=== PATIENT | female | born 1970 | race African-American/Black ===

== ENCOUNTER 2019-05-19 03:26 | Inpatient (IN) | payer MEDICAID ==
[~2019-05-19] VITALS: Ht 167.6 cm; Wt 91.2 kg
[~2019-05-19 03:26] MED LIST: Famotidine PO; VITMAIN B12 PO
[2019-05-19] MEDS ORDERED: ONDANSETRON HCL 4MG/2ML INJ IV STA (04:42)
[2019-05-19] MEDS ORDERED: FAMOTIDINE 20MG/2ML VIAL IV STA (04:42)
[2019-05-19] MEDS ORDERED: SODIUM CHLORIDE 0.9% 1,000 ML IV ONE (04:42)
[2019-05-19 06:01] LABS: BASOPHILS % 0.1 % (0.0-2.0); EOSINOPHILS % 0.7 % (0.0-5.0); LYMPHOCYTES % 20.4 % (20.0-50.0); MEAN CORPUSCULAR HEMOGLOBIN 24.1 pg (28.0-32.0); MONOCYTES % 2.2 % (2.0-8.0); NEUTROPHILS % 76.6 % (40.0-76.0); RED BLOOD CELL COUNT 2.24 mill/uL (4.2-5.4); RED CELL DISTRIBUTION WIDTH 49.6 % (11.6-14.6)
[2019-05-19 06:10] LABS: CHLORIDE 107 mEq/L (98-107)
[2019-05-19 06:22] LABS: HEMATOCRIT. 17.5 % (36.0-48.0); HEMOGLOBIN. 5.4 g/dL (12.0-16.0)
[2019-05-19 06:33] LABS: PLATELET ESTIMATE NORMAL
[2019-05-19 06:38] LABS: PLATELET 136 x1000/uL (130-400)
[2019-05-19 06:39] LABS: MEAN PLATELET VOLUME 9.1 fl (7.4-10.4)
[2019-05-19 13:18] LABS: CLARITY URINE CLOUDY (CLEAR); COLOR URINE ORANGE (YELLOW); KETONES URINE NEGATIVE (NEGATIVE); LEUKOCYTE ESTERASE URINE TRACE (NEGATIVE); NITRITE URINE NEGATIVE (NEGATIVE); OCCULT BLOOD URINE 1+ (NEGATIVE); PH URINE 6.5 (4.5-8.0); PROTEIN URINE TRACE (NEGATIVE); SPECIFIC GRAVITY URINE 1.021 (1.005-1.030)
[2019-05-19 15:27] LABS: TOTAL IRON BINDING CAPACITY 204 ug/dL (250-450)
[2019-05-19 15:53] LABS: VITAMIN B12 SERUM < 60 pg/mL (211-911)
[2019-05-19] MEDS ORDERED: LEVOFLOXACIN 500MG PREMIX 100 ML IV SCH (17:00)
[2019-05-19 20:00] VITALS: BP 134/70
[2019-05-19 20:24] VITALS: BP 134/70
[2019-05-19] MEDS ORDERED: CLONIDINE 0.1MG TABLET PO PRN (21:45)
[2019-05-19] MEDS ORDERED: TRAMADOL 50MG TABLET PO PRN (21:45)
[2019-05-19] MEDS ORDERED: ZOLPIDEM TARTRATE 5MG TABLET PO PRN (21:45)
[2019-05-19] MEDS ORDERED: NITROGLYCERIN 0.4MG TABLET SL SL PRN (21:45)
[2019-05-19] MEDS ORDERED: ACETAMINOPHEN 325MG TABLET PO PRN (21:45)
[2019-05-19] MEDS ORDERED: LORAZEPAM 0.5MG TABLET PO PRN (21:45)
[2019-05-19] MEDS ORDERED: NA PHOS,M-B/NA PHOS,DI-BA ENEMA 118ML PR PRN (21:45)
[2019-05-19] MEDS ORDERED: ONDANSETRON HCL 4MG/2ML INJ IV PRN (21:45)
[2019-05-19] MEDS ORDERED: MAGNESIUM/ALUMINUM HYDROXIDE/SIMETHICONE 30ML UDC PO PRN (21:45)
[2019-05-19] MEDS ORDERED: GUAIFENESIN 200MG/10ML SUGAR FREE UDC PO PRN (21:45)
[2019-05-19] MEDS ORDERED: IPRATROPIUM/ALBUTEROL 0.5-3(2.5)MG/3ML NEB NEB PRN (21:45)
[2019-05-19] MEDS ORDERED: DOCUSATE SODIUM 100MG CAPSULE PO PRN (21:45)
[2019-05-20] VITALS: BP 120/54
[2019-05-20 03:44] VITALS: BP 115/67
[2019-05-20 08:31] LABS: *AMPHETAMINES SCREEN URINE NEGATIVE (NEGATIVE); *BARBITURATES SCREEN URINE NEGATIVE (NEGATIVE); *BENZODIAZEPINES SCREEN URINE NEGATIVE (NEGATIVE)
[2019-05-20 08:32] LABS: *COCAINE SCREEN URINE NEGATIVE (NEGATIVE); METHADONE URINE SCREEN NEGATIVE (NEGATIVE); OPIATES URINE SCREEN NEGATIVE (NEGATIVE); PHENCYCLIDINE URINE SCREEN NEGATIVE (NEGATIVE)
[2019-05-20 08:33] LABS: CANNABINOID URINE SCREEN PRESUMTIVE POSITIVE (NEGATIVE)
[2019-05-20] MEDS ORDERED: FAMOTIDINE 20MG TABLET PO SCH (09:00)
[2019-05-20 09:06] LABS: CHLORIDE 106 mEq/L (98-107)
[2019-05-20 09:11] LABS: BASOPHILS % 0.1 % (0.0-2.0); EOSINOPHILS % 2.8 % (0.0-5.0); HEMATOCRIT. 25.5 % (36.0-48.0); HEMOGLOBIN. 8.5 g/dL (12.0-16.0); LYMPHOCYTES % 30.5 % (20.0-50.0); MEAN CORPUSCULAR HEMOGLOBIN 27.3 pg (28.0-32.0); MEAN CORPUSCULAR VOLUME 81.7 fL (81.0-99.0); MEAN PLATELET VOLUME 9.9 fl (7.4-10.4); MONOCYTES % 2.6 % (2.0-8.0); PLATELET 116 x1000/uL (130-400); RED BLOOD CELL COUNT 3.11 mill/uL (4.2-5.4); RED CELL DISTRIBUTION WIDTH 39.7 % (11.6-14.6)
[2019-05-20 09:19] LABS: PHOSPHORUS 3.5 mg/dL (2.5-4.9)
[2019-05-20] MEDS ORDERED: CYANOCOBALAMIN 1000MCG/ML VIAL IM NR (11:00)
[2019-05-20 13:23] VITALS: BP 131/65
[2019-05-20] MEDS ORDERED: LEVOFLOXACIN 500MG PREMIX 100 ML IV SCH (17:00)
[2019-05-20] MEDS ORDERED: FAMOTIDINE 40MG TABLET PO SCH (21:00)
== END 2019-05-20 14:35 | disposition home or self-care (01) | DRG 663 ==
LOC: ER 03:26 → 5WST 05:14 → EDBEDREQ 05:28 → EDBEDREQTM 05:28 → ENRESERV 17:42
PROVIDERS: ADMIT Internal Medicine; ATTEND Internal Medicine
PROC: 30233N1 Transfusion of Nonautologous Red Blood Cells into Peripheral Vein, Percutaneous Approach (ICD-10-PCS; principal; 2019-05-19)
DX: D51.9 Vitamin B12 deficiency anemia, unspecified (principal); C94.6 Myelodysplastic disease, not elsewhere classified; N39.0 Urinary tract infection, site not specified; Z88.0 Allergy status to penicillin; Z91.14 Patient's other noncompliance with medication regimen; Z79.899 Other long term (current) drug therapy
CPT/HCPCS: 36415; 71045; 76830; 76856; 80053; 80305; 81003; 82270; 82607; 82746; 83540; 83550; 83605; 83735; 84100; 85025; 86850; 86900; 86920; 93005; 99285; J1956; J2405; J3420; J3490; J7030; P9016